=== PATIENT | male | born 1985 ===

== ENCOUNTER 2024-01-20 13:10 | Outpatient (AMB) | payer MEDICARE, MEDICAID, SELFPAY ==
--- NOTE | 2024-01-20 13:05 | MHC.OFFVIS ---
Vital Signs 01/20/24 13:12 Height 6 ft Weight 256 lb 8 oz BMI 34.8 BP 110/62 Blood Pressure Location Rt brachial Position Sitting Pulse 69 Pulse Source Pulse Oximeter Pulse Oximetry (%) 97 Oxygen Delivery Method Room Air Intake Visit Reasons: persistent cough Allergies No Known Allergies Allergy (Verified 01/20/24 13:15) HPI HPI persistent cough: Details: Girish is a pleasant 38 year old male, never smoker, with underlying HTN, GERD and allergic rhinitis. He was referred by PCP for pulmonary evaluation. He reports persistent dry cough, occasionally with white mucous for the past 2.5-3 months. He also reports associated chest tightness, dyspnea on exertion and wheezing. He was treated with a medrol dose [place] and flonase on 01/05 with minimal relief. He was also prescribed albuterol with worsening of cough. He was then treated with azithromycin 500 mg x 7 days as well as a prednisone taper for 13 days, currently tapering. He reports symptoms were improved with initial prednisone dose of 60 mg, however after tapering symptoms recurred. He denies prior h/o asthma. He denies seasonal allergies, however reports persistent nasal congestion. Denies pets. He has worked as a hairdresser x 20 years. He reports mother with a h/o severe asthma. He reports uncontrolled GERD, recently had an increase in pantoprazole, now on 40 mg. He also notes persistent nausea and vomiting. He is under the care of GI. He attributes the start of symptoms to recent recall on apple juice with elevated levels of arsenic. He has been evaluated multiple times at the [facility] and [facility], with labs and imaging performed. Records not available. He reports CXR was performed with abnormal findings however report unavailable today. Respiratory panel reportedly negative. COUNT INCLUDES THE [facility] Social History (Updated 01/20/24 @ 13:14 by Elicia Rasheed CMA) Patient Tobacco Use Status: Never used Tobacco Substance Use Type: Marijuana Review of Systems Const Denies chills, Denies excessive sweating, Denies fever(s), Denies headache(s) and Denies night sweats Eyes Denies dry eyes, Denies irritation and Denies itchy eyes ENT Reports Normal hearing present, Denies headache(s), Reports nasal congestion, Denies nasal discharge, Reports post nasal drip and Denies sore throat Card Denies chest pain, Denies chest pain at rest, Denies chest pain with activity, Denies claudication, Denies leg edema, Reports dyspnea on exertion, Denies orthopnea and Denies paroxysmal nocturnal dyspnea Resp Denies chest congestion, Reports cough, Denies hemoptysis, Denies excessive phlegm production, Denies pain on inspiration, Reports pain with cough, Reports dyspnea on exertion, Denies stridor and Reports wheezing Musc Denies myalgias Neuro Reports Normal hearing present and Denies headache(s) Endo Denies excessive sweating Jim/Lymph Denies lymphadenopathy Aller/Immun Denies itchy eyes, Denies seasonal rhinorrhea and Reports wheezing Physical Exam Vital Signs: Last Vital Signs Pulse 69 01/20/24 13:12 BP 110/62 01/20/24 13:12 Pulse Ox 97 01/20/24 13:12 Oxygen Delivery Method Room Air 01/20/24 13:12 BMI result Body Mass Index 34.8 Const General: cooperative, healthy appearing, comfortable, no acute distress, well developed and alert Orientation/consciousness: patient oriented x3 Limitations: no limitations HEENT Head: Yes normal to inspection, Yes normocephalic and Yes atraumatic Ears: hearing grossly normal bilaterally and external ears normal Eyes General: appearance normal, both eyes and all related structures Eyelids: Yes eyelids normal Sclerae: sclerae normal EOM: EOMs intact bilaterally Neck Neck: Yes normal visual inspection and Yes no lymphadenopathy Lymphatic: no lymphadenopathy noted Chest Chest palpation & inspection: normal inspection of the chest Resp Other: persistent dry cough throughout visit, worse with inspiration Effort & Inspection: normal respiratory effort, able to speak in complete sentences, no audible wheezes, Actively coughing, no stridor, not tachypneic, no tripod positioning and no use of accessory muscles Auscultation: no wheezes and diminished lung sounds Cardio Jugular venous distension: no JVD Rate: regular rate Rhythm: regular rhythm Skin Other: warm, dry General skin exam: no rashes or lesions noted Neuro General: patient oriented x3 Cranial nerves: Yes Normal hearing present Cognition (Neuro): normal cognition Gait exam (Neuro): Normal gait present Extrem General: Yes normal to inspection, Yes capillary refill normal, Yes no clubbing, cyanosis or edema and Yes no pedal edema Psych Appearance: grossly normal and well kempt Speech and movement: Normal speech and movement present and Clear speech present Affect: normal affect Attitude: cooperative Thought process: Normal thought process present Thought content: Normal thought content present Insight: Good insight present (Psych) Judgement: Good judgement present (Psych) Office Procedures Nebulizer Treatment Nebulizer Treatment [id number]/MDI RX initial, or Nebulizer Subsequent Treatment Office Meds ipratropium 0.5 mg-albuterol 3 mg (2.5 mg base)/3 mL nebulization soln Performing Provider: Gogo De Paz NP Performing Location: [facility] Administered by: Kindra Mesa LPN on 01/20/24 13:57 Dose Route Admin Location Dispensed Lot Number Expiration Date ND Associate Faculty 3 mL inhalation 3 mL [id number] 08/09/25 01525-917-74 [employer] Assessment & Plan Assessment & Plan (1) Chronic cough: Code(s): R05.3 - Chronic cough Category: Medical (2) Allergic rhinitis: Code(s): J30.9 - Allergic rhinitis, unspecified Category: Medical (3) GERD (gastroesophageal reflux disease): Code(s): K21.9 - Gastro-esophageal reflux disease without esophagitis Category: Medical Plan Girish presents for pulmonary evaluation for chronic cough with associated dyspnea, wheezing and chest tightness. His symptoms are likely multifactorial with pulmonary and reflux etiologies. He was evaluated on multiple occasions at the ED as well as PCP and GI. Will attempt to obtain records, as patient reports labs and CXR performed. Will review and likely place additional orders. Will send for chest CT to evaluate for any parenchymal conditions contributing to cough. Symptoms suggestive of underlying RAD versus ILD. Will trial ICS, discussed importance of good oral hygiene. Discussed starting on high dose of prednisone, as he noted initial improvements with taper, will await results of CT. If he notes symptoms worsening, will send rx. Once cough is more controlled, will send for PFT. All questions were answered and patient is in agreement of plan. Will follow up in 2 weeks or sooner if needed. Orders: Orders CT chest wo IV con Today R05.3 - Chronic cough AMB Nebulizer Treatment Today R05.3 - Chronic cough Medications: New fluticasone propionate 110 mcg/actuation administer with spacer 2 puffs inhalation BID 12 grams 3RF Coding Level of Care Code New Pt Level 4 (73859) Diagnoses Chronic cough R05.3 Allergic rhinitis J30.9 GERD (gastroesophageal reflux disease) K21.9 CPT Codes Nebulizer Treatment - Nebulizer Treatment, initial or subsequent: [id number]/MDI RX initial, or Nebulizer Subsequent Treatment ([id number])
[2024-01-20 13:12] VITALS: BP 110/62; PULSE 69; O2SAT 97; BMI 34.8
== END 2024-01-20 14:12 | disposition home or self-care (01) ==
PROVIDERS: PCP Internal Medicine; Referring Provider Internal Medicine; Visit Provider Nurse Practitioner Family
DX: R05.3 Chronic cough (principal); J30.9 Allergic rhinitis, unspecified; K21.9 Gastro-esophageal reflux disease without esophagitis
CPT/HCPCS: 99204

== ENCOUNTER → 2024-01-20 13:10 | Outpatient (BNVA) | payer MEDICARE, MEDICAID, SELFPAY | PROVIDERS: PCP Internal Medicine; Referring Provider Internal Medicine; Visit Provider Nurse Practitioner Family | DX: R05.3 Chronic cough (principal); J30.9 Allergic rhinitis, unspecified; K21.9 Gastro-esophageal reflux disease without esophagitis | CPT/HCPCS: 94640; 99202 ==

== ENCOUNTER 2024-01-30 13:18 | Outpatient (REF) | payer MEDICARE, MEDICAID, SELFPAY ==
--- NOTE | ~2024-01-30 | CT_ITS ---
EXAMINATION: CT CHEST WITHOUT CONTRAST CLINICAL INFORMATION: Craniocaudal COMPARISON: None available. TECHNIQUE: Multidetector volumetric CT imaging of the chest was done. Axial MIP volume rendering provided. Sagittal and coronal reformatted images were obtained. This CT examination was performed using dose optimization techniques as appropriate, variously including the following: *Automated exposure control *Adjustment of mA and/or kV according to patient size (this includes techniques or standardized protocols for targeted exams where dose is matched to indication/reason for exam; i.e. extremities or head) *Use of iterative reconstruction technique DLP: 247 mGy-cm FINDINGS: CUSTOMER SERVICE SUPERVISOR: Unremarkable LUNGS: The lungs are clear with no evidence of inflammation or nodules. Central airways are patent. MEDIASTINUM: The mediastinum is normal. CORONARY ARTERY CALCIFICATION: None visualized on this study. PLEURA: There is no pleural effusion. No pleural mass or thickening. AXILLA: No lymphadenopathy. UPPER ABDOMEN: Liver is of low attenuation due to hepatic steatosis. There are nitrogen containing gallstones. Spleen, pancreas, adrenal glands and visualized kidneys are unremarkable. OSSEOUS STRUCTURES: Unremarkable. CT/CT chest wo IV con IMPRESSION: Unremarkable lungs. Hepatic steatosis and cholelithiasis Fleischner guidelines were followed. Electronically signed by: Holli Saeed MD 01/30/2024 04:02 PM EDT
== END 2024-01-30 13:19 | disposition home or self-care (01) ==
LOC: HO.CT 13:18
PROVIDERS: PCP Internal Medicine; Visit Provider Nurse Practitioner Family
DX: R05.3 Chronic cough (principal)
CPT/HCPCS: 71250

== ENCOUNTER 2024-02-18 09:29 | Outpatient (REF) | payer MEDICARE, MEDICAID, SELFPAY ==
[2024-02-18 09:52] LABS: MANUAL DIFF FLAG NO
[2024-02-18 10:11] LABS: Basophils Percent Auto 0.5 % (0-2); Eosinophils Absolute Auto 0.1 X10*3/uL (0.0-0.4); Eosinophils Percent Auto 1.1 % (0-4); Hematocrit 44.7 % (42.0-52.0); Hemoglobin 14.8 g/dl (14.0-18.0); Imm Gran Pct Auto 1.6 % (0.0-0.4); Lymphocytes Absolute Auto 2.3 X10*3/uL (1.2-4.9); Lymphocytes Percent Auto 36.6 % (20-40); Mean Corpuscular HGB Conc 33.1 g/dl (31.0-36.0); Mean Corpuscular Hemoglobin 30.6 pg (27.0-33.0); Mean Corpuscular Volume 92.5 fL (80.0-98.0); Mean Platelet Volume 9.4 fL (9.4-12.4); Monocytes Absolute Auto 0.4 X10*3/uL (0.1-1.2); Monocytes Percent Auto 7.1 % (2-11); Neutrophils Absolute Auto 3.3 x10*3/uL (2.0-8.3); Neutrophils Percent Auto 53.1 % (45-73); Platelet Count 299 X10*3/uL (160-400); Red Blood Count 4.83 X10*6/uL (4.60-5.80); Red Cell Distribution Width 11.9 % (11.0-16.0); White Blood Count 6.2 X10*3/uL (4.8-10.8)
[2024-02-20 14:18] LABS: Class Alternaria alternata 0; Class Aspergillus fumigatus 0; Class Bermuda Grass 0; Class Birch 0; Class Cat Dander 0; Class Cladosporium herbarum 0; Class Cockroach 2; Class Common Ragweed 2; Class Cottonwood 0; Class Derm. pterony 2; Class Dermatophagoides farinae 2; Class Dog Dander 0; Class Elm 0; Class Maple Box Elder 0; Class Mountain Cedar 0; Class Mouse Urine Protein 0; Class Mugwort 0; Class Oak 0; Class Penicillium crysogenum 0; Class Rough Pigweed 0; Class Sheep Sorrel 0; Class Sycamore 0; Class Timothy Grass 0/1; Class Walnut Tree 0; Class White Ash 0; Class White Mulberry 0; D001 IgE D pteronyssinus 3.39 kU/L; D002 - IgE D farinae 2.75 kU/L; E001 - IgE Cat Dander <0.10 kU/L; E005 - IgE Dog Dander <0.10 kU/L; E072-IgE Mouse Urine <0.10 kU/L; G002 IgE Bermuda Grass <0.10 kU/L; G006 - IgE Timothy Grass 0.32 kU/L; Immunoglobulin E 40 kU/L (<OR=114); M001 IgE Penicillium chrysogen <0.10 kU/L; M002 - IgE Cladosporium herbar <0.10 kU/L; M003 - IgE Aspergillus fumigat <0.10 kU/L; M006 - IgE Alternaria alternat <0.10 kU/L; T001 IgE Maple/Box Elder <0.10 kU/L; T003 IgE Common Silver Birch <0.10 kU/L; T006 - IgE Cedar, Mountain <0.10 kU/L; T007 - IgE Oak, White <0.10 kU/L; T008 IgE Elm, American <0.10 kU/L; T010 - IgE Walnut <0.10 kU/L; T011 - IgE Maple Leaf Sycamore <0.10 kU/L; T014 - IgE Cottonwood <0.10 kU/L; T015 - IgE Ash, White <0.10 kU/L; T070 - IgE White Mulberry <0.10 kU/L; W001 - IgE Ragweed, Short 3.09 kU/L; W006 - IgE Mugwort <0.10 kU/L; W014 IgE Pigweed, Common <0.10 kU/L; W018 IgE Sheep Sorrel <0.10 kU/L
== END 2024-02-18 09:30 | disposition home or self-care (01) ==
LOC: HO.LAB 09:29
PROVIDERS: PCP Internal Medicine; Visit Provider Nurse Practitioner Family
DX: Z91.09 Other allergy status, other than to drugs and biological substances (principal)
CPT/HCPCS: 36415; 82785; 85025; 86003

== ENCOUNTER 2024-03-16 10:52 | Outpatient (AMB) | payer MEDICARE, MEDICAID, SELFPAY ==
--- NOTE | 2024-03-16 10:54 | MHC.OFFVIS ---
Vital Signs 03/16/24 10:55 Height 6 ft Weight 260 lb BMI 35.3 BP 114/68 Blood Pressure Location Rt brachial Position Sitting Pulse 69 Pulse Source Pulse Oximeter Pulse Oximetry (%) 97 Oxygen Delivery Method Room Air Intake Visit Reasons: persistent cough Allergies No Known Allergies Allergy (Verified 03/16/24 10:57) HPI HPI persistent cough: Details: Girish is a pleasant 38 year old male, never smoker, with underlying HTN, GERD and allergic rhinitis. He was referred by PCP for pulmonary evaluation. He reported persistent dry cough, occasionally with white mucous for the past 2.5-3 months. He also reports associated chest tightness, dyspnea on exertion and wheezing. He was treated with a medrol dose [place] and flonase on 01/05 with minimal relief. He was also prescribed albuterol with worsening of cough. He was then treated with azithromycin 500 mg x 7 days as well as a prednisone taper for 13 days, currently tapering. He reports symptoms were improved with initial prednisone dose of 60 mg, however after tapering symptoms recurred. He denies prior h/o asthma. At the last visit he was started on an ICS with moderate improvement in symptoms, cough now dry and continues to report dyspnea as well as chest tightness with certain exposures as well as exertion. Today he presents to review CT results and RAST testing. [facility] Social History Patient Tobacco Use Status: Never used Tobacco Substance Use Type: Marijuana Review of Systems Const Denies chills, Denies excessive sweating, Denies fever(s), Denies headache(s) and Denies night sweats Eyes Denies dry eyes, Denies irritation and Denies itchy eyes ENT Reports Normal hearing present, Denies headache(s), Reports nasal congestion, Denies nasal discharge, Reports post nasal drip and Denies sore throat Card Denies chest pain, Denies chest pain at rest, Denies chest pain with activity, Denies claudication, Denies leg edema, Reports dyspnea on exertion, Denies orthopnea and Denies paroxysmal nocturnal dyspnea Resp Denies chest congestion, Reports cough, Denies hemoptysis, Denies excessive phlegm production, Denies pain on inspiration, Reports pain with cough, Reports dyspnea on exertion, Denies stridor and Reports wheezing Musc Denies myalgias Neuro Reports Normal hearing present and Denies headache(s) Endo Denies excessive sweating Jim/Lymph Denies lymphadenopathy Aller/Immun Denies itchy eyes, Denies seasonal rhinorrhea and Reports wheezing Physical Exam Vital Signs: Last Vital Signs Pulse 69 03/16/24 10:55 BP 114/68 03/16/24 10:55 Pulse Ox 97 03/16/24 10:55 Oxygen Delivery Method Room Air 03/16/24 10:55 BMI result Body Mass Index 35.3 Const General: cooperative, healthy appearing, comfortable, no acute distress, well developed and alert Orientation/consciousness: patient oriented x3 Limitations: no limitations HEENT Head: Yes normal to inspection, Yes normocephalic and Yes atraumatic Ears: hearing grossly normal bilaterally and external ears normal Eyes General: appearance normal, both eyes and all related structures Eyelids: Yes eyelids normal Sclerae: sclerae normal EOM: EOMs intact bilaterally Neck Neck: Yes normal visual inspection and Yes no lymphadenopathy Lymphatic: no lymphadenopathy noted Chest Chest palpation & inspection: normal inspection of the chest Resp Effort & Inspection: normal respiratory effort, able to speak in complete sentences, no audible wheezes, no cough, no stridor, not tachypneic, no tripod positioning and no use of accessory muscles Auscultation: clear to auscultation bilaterally Cardio Jugular venous distension: no JVD Rate: regular rate Rhythm: regular rhythm Skin Other: warm, dry General skin exam: no rashes or lesions noted Neuro General: patient oriented x3 Cranial nerves: Yes Normal hearing present Cognition (Neuro): normal cognition Gait exam (Neuro): Normal gait present Extrem General: Yes normal to inspection, Yes capillary refill normal, Yes no clubbing, cyanosis or edema and Yes no pedal edema Psych Appearance: grossly normal and well kempt Speech and movement: Normal speech and movement present and Clear speech present Affect: normal affect Attitude: cooperative Thought process: Normal thought process present Thought content: Normal thought content present Insight: Good insight present (Psych) Judgement: Good judgement present (Psych) Results Reviewed Results Reviewed: [address] [address] [address] Scan Report Signed Patient: Girish Perales MR#: [id number] : 1985 Acct:[id number] Age/Sex: 38 / M ADM Date: 01/30/24 Loc: HO.CT Attending Dr: Gogo De Paz NP Ordering Physician: Gogo De Paz NP Date of Service: 01/30/24 Procedure(s): CT chest wo IV con Accession Number(s): [id number] cc: Patricia Veloz MD; Gogo De Paz NP~ EXAMINATION: CT CHEST WITHOUT CONTRAST CLINICAL INFORMATION: Craniocaudal COMPARISON: None available. TECHNIQUE: Multidetector volumetric CT imaging of the chest was done. Axial MIP volume rendering provided. Sagittal and coronal reformatted images were obtained. This CT examination was performed using dose optimization techniques as appropriate, variously including the following: *Automated exposure control *Adjustment of mA and/or kV according to patient size (this includes techniques or standardized protocols for targeted exams where dose is matched to indication/reason for exam; i.e. extremities or head) *Use of iterative reconstruction technique DLP: 247 mGy-cm FINDINGS: CERTIFIED OPHTHALMIC TECHNICIAN: Unremarkable LUNGS: The lungs are clear with no evidence of inflammation or nodules. Central airways are patent. MEDIASTINUM: The mediastinum is normal. CORONARY ARTERY CALCIFICATION: None visualized on this study. PLEURA: There is no pleural effusion. No pleural mass or thickening. AXILLA: No lymphadenopathy. UPPER ABDOMEN: Liver is of low attenuation due to hepatic steatosis. There are nitrogen containing gallstones. Spleen, pancreas, adrenal glands and visualized kidneys are unremarkable. OSSEOUS STRUCTURES: Unremarkable. CT/CT chest wo IV con IMPRESSION: Unremarkable lungs. Hepatic steatosis and cholelithiasis Fleischner guidelines were followed. Electronically signed by: Holli Saeed MD 01/30/2024 04:02 PM EDT Dictated By: Holli Saeed MD Signed By: <Electronically signed by Holli Saeed MD in OV> 01/30/24 1602 DD/ 1345 TD/TT: 01/30/24 1348 Data Solutions Architect: Assessment & Plan Assessment & Plan (1) Chronic cough: Code(s): R05.3 - Chronic cough Category: Medical (2) Allergic rhinitis: Code(s): J30.9 - Allergic rhinitis, unspecified Category: Medical (3) GERD (gastroesophageal reflux disease): Code(s): K21.9 - Gastro-esophageal reflux disease without esophagitis Category: Medical Plan Reviewed Chest CT which was unremarkable. No need for further imaging at this time. RAST revealed allergies to dust mites, hugo grass and cockroach. Discussed to trial a daily antihistamine. He reports moderate improvements in symptoms using ICS and albuterol MDI. Given that he has been using albuterol frequently, will switch to ICS/LABA. Now that cough has improved, will send for PFT, likely he has underlying asthma. All questions were answered and patient is in agreement of plan. Will follow up in 6-8 weeks or sooner if needed. Orders: Orders PFT pulmonary function test Today R05.3 - Chronic cough Medications: New budesonide-formoterol 160-4.5 mcg/actuation (Symbicort) 2 puffs inhalation Q12H 10.2 grams 6RF Discontinued fluticasone furoate 100 mcg/actuation (Arnuity Ellipta) Discontinued Reason: Patient Completed Course 1 inh inhalation DAILY 30 ea 3RF Coding Level of Care Code Est Pt Level 4 (05747) Diagnoses Chronic cough R05.3 Allergic rhinitis J30.9 GERD (gastroesophageal reflux disease) K21.9
[2024-03-16 10:55] VITALS: BP 114/68; PULSE 69; O2SAT 97; BMI 35.3
== END 2024-03-16 11:26 | disposition home or self-care (01) ==
LOC: HO.HPSW 10:52
PROVIDERS: PCP Internal Medicine; Visit Provider Nurse Practitioner Family
DX: R05.3 Chronic cough (principal); J30.9 Allergic rhinitis, unspecified; K21.9 Gastro-esophageal reflux disease without esophagitis
CPT/HCPCS: 99214

== ENCOUNTER → 2024-03-16 10:52 | Outpatient (BNVA) | payer MEDICARE, MEDICAID, SELFPAY | PROVIDERS: PCP Internal Medicine; Visit Provider Nurse Practitioner Family | DX: R05.3 Chronic cough (principal); J30.9 Allergic rhinitis, unspecified; K21.9 Gastro-esophageal reflux disease without esophagitis | CPT/HCPCS: 99212 ==